=== PATIENT | female | born 1990 | race Caucasian/White ===

== ENCOUNTER 2017-05-28 07:36 | Inpatient (IN) | payer BC, MEDICAID ==
[2017-05-28] MEDS ORDERED: MISOPROSTOL 200 MCG TAB PR ×2 (08:00→11:30)
[2017-05-28] MEDS ORDERED: CARBOPROST 250 MCG INJ IM ×2 (08:00→11:30)
[2017-05-28] MEDS ORDERED: METHYLERGONOVINE 0.2 MG INJ IM ×2 (08:00→11:30)
[2017-05-28] MEDS ORDERED: OXYTOCIN 30 UNITS/LR 500 ML IV ×2 (08:00→11:30)
[2017-05-28 08:16] LABS: ADD MAN DIFF? NO
[2017-05-28 08:22] LABS: BASOPHIL # 0.1 10^3/ul (0.0-0.1); BASOPHILS % 0.4 % (0.0-2.0); EOSINOPHILS # 0.3 10^3/ul (0.0-0.5); EOSINOPHILS % 2.6 % (0.0-7.0); HEMATOCRIT 35.1 % (37.0-47.0); HEMOGLOBIN 11.6 g/dl (12.0-16.0); LYMPHOCYTES # 1.8 10^3/ul (0.8-2.9); LYMPHOCYTES % 15.9 % (15.0-51.0); MEAN CORPUSCULAR HEMOGLOBIN 27.3 pg (29.0-33.0); MEAN CORPUSCULAR VOLUME 82.6 fl (82.0-101.0); MONOCYTE # 0.7 10^3/ul (0.3-0.9); MONOCYTES % 6.4 % (0.0-11.0); NEUTROPHIL # 8.5 10^3/ul (1.6-7.5); NEUTROPHILS % 73.9 % (39.0-77.0); PLATELET COUNT 172 10^3/UL (140-415); RED BLOOD COUNT 4.25 10^6/ul (4.20-5.40); RED CELL DISTRIBUTION WIDTH 13.3 % (11.5-14.5)
[2017-05-28 08:22] LABS: WHITE BLOOD COUNT 11.5 10^3/ul (4.8-10.8)
[2017-05-28] MEDS: LACTATED RINGER'S 1,000 ML IV ×3 (08:23→15:24)
[2017-05-28 08:42] LABS: INR 0.88; PT RATIO 0.9
[2017-05-28 08:43] LABS: PARTIAL THROMBOPLASTIN TIME 28.4 Sec (25.0-35.0)
[2017-05-28] MEDS: ONDANSETRON 4 MG INJ IV (09:25)
[2017-05-28] MEDS: CITRIC ACID/SODIUM CITRATE 15 ML CUP PO (09:25)
[2017-05-28 09:36] LABS: HEPATITIS B SURFACE ANTIGEN NEGATIVE (NEGATIVE)
[2017-05-28] MEDS ORDERED: morphine SULFATE/PF (10 MG/10 ML) INJ (09:39)
[2017-05-28] MEDS ORDERED: PHENYLephrine (100 MCG/ML) 5ML SYG (09:39)
[2017-05-28] MEDS ORDERED: OXYTOCIN 10 UNIT INJ (09:39)
[2017-05-28] MEDS ORDERED: FENTAnyl 50 MCG/ML VIAL (09:39)
[2017-05-28] MEDS ORDERED: METOCLOPRAMIDE 10 MG INJ (09:39)
[2017-05-28] MEDS ORDERED: DIPHENHYDRAMINE 50 MG INJ (10:07)
[2017-05-28] MEDS ORDERED: MIDAZOLAM 1 MG/ML 2 ML INJ IV (10:30)
[2017-05-28] MEDS ORDERED: NALBUPHINE HCL (10 MG/1 ML) INJ IV (10:30)
[2017-05-28] MEDS ORDERED: HYDROmorphONE (0.2 MG/ML) 10ML SYG IV ×3 (10:30)
[2017-05-28] MEDS ORDERED: FENTAnyl 50 MCG/ML VIAL IV ×3 (10:30)
[2017-05-28] MEDS ORDERED: hydrALAzine 20 MG INJ IV (10:30)
[2017-05-28] MEDS ORDERED: LABETALOL HCL 20MG INJ IV (10:30)
[2017-05-28] MEDS ORDERED: EPHEDrine SULFATE 50 MG/5 ML SYG IV (10:30)
[2017-05-28] MEDS ORDERED: morphine 2 MG INJ IV ×2 (10:30)
[2017-05-28] MEDS ORDERED: ALBUTEROL 0.083% (NEB) 2.5 MG/3 ML AMP HHN (10:30)
[2017-05-28] MEDS ORDERED: NALOXONE (0.4 MG/ML) INJ IV (10:30)
[2017-05-28] MEDS ORDERED: OXYCODONE/ACETAMINOPHEN (5/325) TAB PO ×3 (10:30→11:30)
[2017-05-28] MEDS ORDERED: MEPERIDINE 25 MG INJ IV (10:30)
[2017-05-28] MEDS ORDERED: DIPHENHYDRAMINE 50 MG INJ IV ×2 (10:30)
[2017-05-28] MEDS ORDERED: ONDANSETRON 4 MG INJ IV ×2 (10:30)
[2017-05-28] MEDS ORDERED: TRIMETHOBENZAMIDE 100 MG/ML VIAL IM ×2 (10:30)
[2017-05-28] MEDS ORDERED: IPRATROPIUM (NEB) 0.5 MG/2.5 ML AMP HHN (10:30)
[2017-05-28] MEDS: CEFAZOLIN 2 GM/50 ML (PMX) 50 ML IV ×2 (11:14→17:34)
[2017-05-28] MEDS ORDERED: CEFAZOLIN 2 GM/50 ML (PMX) 50 ML IV (11:30)
[2017-05-28] MEDS: OXYTOCIN 30 UNITS/LR 500 ML IV (11:52)
[2017-05-28] MEDS: LANOLIN 7 GM TUBE TOP (15:24)
[2017-05-28 18:59] LABS: RAPID PLASMA REAGIN NONREACTIVE (NR)
[2017-05-28] MEDS: SENNA/DOCUSATE NA (8.6MG/50MG) TAB PO (21:00)
[2017-05-29] MEDS: LACTATED RINGER'S 1,000 ML IV ×3 (00:59→12:00)
[2017-05-29] MEDS: CEFAZOLIN 2 GM/50 ML (PMX) 50 ML IV ×2 (01:38→10:12)
[2017-05-29] MEDS: KETOROLAC 30 MG INJ IV (03:17)
[2017-05-29 08:34] LABS: ADD MAN DIFF? NO
[2017-05-29 08:46] LABS: WHITE BLOOD COUNT 9.5 10^3/ul (4.8-10.8)
[2017-05-29 08:46] LABS: BASOPHILS % 0.4 % (0.0-2.0); EOSINOPHILS # 0.1 10^3/ul (0.0-0.5); EOSINOPHILS % 1.2 % (0.0-7.0); HEMATOCRIT 29.6 % (37.0-47.0); HEMOGLOBIN 9.6 g/dl (12.0-16.0); LYMPHOCYTES # 1.3 10^3/ul (0.8-2.9); MEAN CORPUSCULAR HEMOGLOBIN 27.2 pg (29.0-33.0); MEAN CORPUSCULAR HGB CONC 32.4 g/dl (32.0-37.0); MEAN CORPUSCULAR VOLUME 83.9 fl (82.0-101.0); MEAN PLATELET VOLUME 12.2 fl (7.4-10.4); MONOCYTE # 0.7 10^3/ul (0.3-0.9); MONOCYTES % 7.2 % (0.0-11.0); NEUTROPHIL # 7.3 10^3/ul (1.6-7.5); NEUTROPHILS % 76.7 % (39.0-77.0); PLATELET COUNT 146 10^3/UL (140-415); RED BLOOD COUNT 3.53 10^6/ul (4.20-5.40); RED CELL DISTRIBUTION WIDTH 13.6 % (11.5-14.5)
[2017-05-29] MEDS: SENNA/DOCUSATE NA (8.6MG/50MG) TAB PO ×2 (09:17→20:52)
[2017-05-29] MEDS: IBUPROFEN 600 MG TAB PO ×3 (12:09→23:57)
[2017-05-29] MEDS: OXYCODONE/ACETAMINOPHEN (5/325) TAB PO (14:52)
[2017-05-30] MEDS: IBUPROFEN 600 MG TAB PO ×3 (05:52→17:50)
[2017-05-30] MEDS: SENNA/DOCUSATE NA (8.6MG/50MG) TAB PO ×2 (09:52→21:00)
[2017-05-30 22:10] LABS: ADD MAN DIFF? NO
[2017-05-30 22:14] LABS: WHITE BLOOD COUNT 12.8 10^3/ul (4.8-10.8)
[2017-05-30 22:14] LABS: BASOPHILS % 0.2 % (0.0-2.0); EOSINOPHILS # 0.3 10^3/ul (0.0-0.5); EOSINOPHILS % 2.7 % (0.0-7.0); HEMATOCRIT 30.7 % (37.0-47.0); HEMOGLOBIN 9.8 g/dl (12.0-16.0); LYMPHOCYTES # 1.2 10^3/ul (0.8-2.9); LYMPHOCYTES % 9.3 % (15.0-51.0); MEAN CORPUSCULAR HEMOGLOBIN 26.7 pg (29.0-33.0); MEAN CORPUSCULAR HGB CONC 31.9 g/dl (32.0-37.0); MEAN CORPUSCULAR VOLUME 83.7 fl (82.0-101.0); MEAN PLATELET VOLUME 11.1 fl (7.4-10.4); MONOCYTE # 0.7 10^3/ul (0.3-0.9); MONOCYTES % 5.3 % (0.0-11.0); NEUTROPHIL # 10.4 10^3/ul (1.6-7.5); NEUTROPHILS % 81.6 % (39.0-77.0); PLATELET COUNT 201 10^3/UL (140-415); RED BLOOD COUNT 3.67 10^6/ul (4.20-5.40); RED CELL DISTRIBUTION WIDTH 13.4 % (11.5-14.5)
[2017-05-30 22:33] LABS: ALANINE AMINOTRANSFERASE 30 IU/L (13-69); ALBUMIN 2.8 g/dl (3.3-4.9); ALBUMIN/GLOBULIN RATIO 0.87; ALKALINE PHOSPHATASE 112 IU/L (42-121); ANION GAP 13 (8-16); ASPARTATE AMINO TRANSFERASE 19 IU/L (15-46); BILIRUBIN,INDIRECT 0.2 mg/dl (0-1.1); BILIRUBIN,TOTAL 0.2 mg/dl (0.2-1.3); BLOOD UREA NITROGEN 10 mg/dl (7-20); CALCIUM 8.9 mg/dl (8.4-10.2); CARBON DIOXIDE 29 mmol/L (21-31); CHLORIDE 106 mmol/L (97-110); CREATININE 0.54 mg/dl (0.44-1.00); GLUCOSE 114 mg/dl (70-220); POTASSIUM 3.5 mmol/L (3.5-5.1); SODIUM 144 mmol/L (135-144)
[2017-05-30] MEDS: ACETAMINOPHEN 325 MG TAB PO (23:58)
[2017-05-31] MEDS: IBUPROFEN 600 MG TAB PO ×4 (05:57→18:18)
[2017-05-31] MEDS: SENNA/DOCUSATE NA (8.6MG/50MG) TAB PO ×2 (09:27→21:25)
[2017-05-31] MEDS: OXYCODONE/ACETAMINOPHEN (5/325) TAB PO (09:27)
[2017-06-01] MEDS: IBUPROFEN 600 MG TAB PO ×3 (00:13→12:11)
[2017-06-01] MEDS: SENNA/DOCUSATE NA (8.6MG/50MG) TAB PO (09:32)
== END 2017-06-01 13:15 | disposition home or self-care (01) | DRG 766 ==
LOC: L-D 07:36 → PP1 13:06
PROVIDERS: Obstetrics & Gynecology
PROC: 10D00Z1 Extraction of Products of Conception, Low, Open Approach (ICD-10-PCS; principal; 2017-05-28 09:30)
PROC: 0UT70ZZ Resection of Bilateral Fallopian Tubes, Open Approach (ICD-10-PCS; 2017-05-28 09:30)
DX: O34.211 Maternal care for low transverse scar from previous cesarean delivery (principal); Z30.2 Encounter for sterilization; Z37.0 Single live birth; Z3A.39 39 weeks gestation of pregnancy
CPT/HCPCS: 80053; 85025; 85610; 85730; 86592; 86850; 86900; 86901; 87340; 88302; 94760; 99464